=== PATIENT | female | born 1940 | race Caucasian/White ===

== ENCOUNTER 2017-12-30 16:09 | Inpatient (IN) | payer MEDICARE, MEDICAID ==
[~2017-12-30] VITALS: Ht 162.6 cm; Wt 55.0 kg
[2017-12-30] MEDS ORDERED: SODIUM CHLORIDE 0.9% 500 ML IVB ONE (16:25)
[2017-12-30] MEDS ORDERED: ONDANSETRON HCL 4 MG/2 ML VIAL IV ONE (16:30)
[2017-12-30] MEDS ORDERED: MORPHINE SULF INJ 2 MG/ML SYRINGE 1ML IV ONE (16:30)
[2017-12-30 17:07] LABS: Basophils # (auto) 0.1 uL; Eosinophils # (auto) 0.1 uL; Eosinophils % (auto) 1.4 % (0.0-7.0); Hematocrit 34.9 % (36.0-46.0); Hemoglobin 11.8 g/dL (12.2-16.2); Lymphocytes # (auto) 1.7 uL; Lymphocytes % (auto) 18.4 % (10.0-50.0); Mean Corpuscular Hemoglobin 30.5 pg (28.0-32.0); Mean Corpuscular Hgb Conc. 33.8 g/dL (32.0-36.0); Mean Corpuscular Volume 90.2 fL (80.0-100.0); Monocytes # (auto) 0.9 uL; Neutrophils # (auto) 6.5 uL; Neutrophils % (auto) 69.2 % (37.0-80.0); Platelet Count (auto) 228 10^3/uL (140-450); Red Blood Cells 3.87 10^6/uL (4.0-5.20); Red Cell Distribution Width 15.3 % (11.8-14.3); White Blood Cell 9.4 10^3/uL (4.4-10.8)
[2017-12-30 17:18] LABS: Albumin 2.6 g/dL (3.4-5.0); Calcium 7.8 mg/dL (8.5-10.1); Magnesium 1.9 mg/dL (1.6-2.6)
[2017-12-30 17:21] LABS: Bilirubin, Total 0.3 mg/dL (0.2-1.0); Total Protein 5.7 g/dL (6.4-8.2)
[2017-12-30 17:29] LABS: Potassium 2.9 mmol/L (3.5-5.1)
[2017-12-30] MEDS: SODIUM CHLORIDE 0.9% 1,000 ML IV SCH (19:12)
[2017-12-30] MEDS ORDERED: MORPHINE SULF INJ 2 MG/ML SYRINGE 1ML IV PRN (19:15)
[2017-12-30] MEDS ORDERED: cefTRIAXone 1GM/10ml IVPUSH 10 ML IV ONE (19:15)
[2017-12-30] MEDS ORDERED: PROMETHAZINE HCL 25 MG/ML 1ML IV PRN (19:15)
[2017-12-30] MEDS ORDERED: NITROGLYCERIN 0.4 MG SL TAB SL PRN (19:15)
[2017-12-30] MEDS ORDERED: ACETAMINOPHEN 500 MG TAB PO PRN (19:15)
[2017-12-30 20:28] LABS: INR 0.91 (0.9-1.15); Partial Thromboplastin Time 27.3 sec (23.78-33.04); Prothrombin Time 9.8 sec (9.27-12.13)
[2017-12-30] MEDS: MORPHINE SULFATE 4 MG/ML SYR/VIAL IV PRN (20:48)
[2017-12-30 20:55] VITALS: BP 106/70
[2017-12-30 22:00] VITALS: BP 106/70
[2017-12-31] VITALS (7 sets, daily range): BP systolic 91–111; BP diastolic 51–70
[2017-12-31] MEDS: metroNIDAZOLE 500MG/100ML 100 ML IV SCH ×5 (00:37→23:40)
[2017-12-31] MEDS: SODIUM CHLORIDE 0.9% 1,000 ML IV SCH ×3 (00:37→23:41)
[2017-12-31 01:36] LABS: Hemoglobin 11.7 g/dL (12.2-16.2)
[2017-12-31] MEDS ORDERED: HYDR-4683 PO (02:42)
[2017-12-31] MEDS ORDERED: DOCU-94 PO (02:42)
[2017-12-31 07:01] LABS: Basophils # (auto) 0.1 uL; Basophils % (auto) 1.2 % (0.0-2.0); Eosinophils # (auto) 0.2 uL; Eosinophils % (auto) 2.2 % (0.0-7.0); Hematocrit 33.3 % (36.0-46.0); Hemoglobin 11.3 g/dL (12.2-16.2); Lymphocytes # (auto) 1.8 uL; Lymphocytes % (auto) 21.8 % (10.0-50.0); Mean Corpuscular Hemoglobin 30.8 pg (28.0-32.0); Mean Corpuscular Volume 90.4 fL (80.0-100.0); Monocytes # (auto) 0.9 uL; Monocytes % (auto) 11.3 % (0.0-12.0); Neutrophils # (auto) 5.3 uL; Neutrophils % (auto) 63.5 % (37.0-80.0); Nucleated Red Blood Cells % 0.1 %; Platelet Count (auto) 219 10^3/uL (140-450); Red Blood Cells 3.68 10^6/uL (4.0-5.20); Red Cell Distribution Width 15.2 % (11.8-14.3); White Blood Cell 8.4 10^3/uL (4.4-10.8)
[2017-12-31 07:15] LABS: Albumin 2.5 g/dL (3.4-5.0); BUN/Creatinine Ratio 12.5; Calcium 7.8 mg/dL (8.5-10.1); Potassium 3.1 mmol/L (3.5-5.1)
[2017-12-31 07:18] LABS: Bilirubin, Total 0.3 mg/dL (0.2-1.0); Total Protein 5.3 g/dL (6.4-8.2)
[2017-12-31] MEDS ORDERED: GASTROGRAFIN 30 ML SOL ONE (09:01)
[2017-12-31] MEDS: PANTOPRAZOLE 40 MG TAB PO SCH (09:25)
[2017-12-31] MEDS: cefTRIAXone 1GM/10ml IVPUSH 10 ML IV SCH (09:25)
[2017-12-31 11:04] LABS: Urine Bacteria NONE SEEN /hpf (None Seen); Urine Blood Negative /uL (Negative); Urine Hyaline Cast FEW /lpf (0 - 2); Urine Specific Gravity 1.006 (1.001-1.035); Urine WBC 1 /hpf (0 - 5)
[2017-12-31] MEDS ORDERED: POTASSIUM CHL 20 Meq TABLET PO ONE (11:30)
[2017-12-31] MEDS: HYDROcodone-ACET 5/325MG TAB PO PRN ×2 (11:44→20:23)
[2017-12-31 12:11] LABS: Hematocrit 35.1 % (36.0-46.0); Hemoglobin 11.9 g/dL (12.2-16.2)
[2017-12-31] MEDS ORDERED: IOHEXOL 300 MG/ML 100ML BOTTLE IJ ONE (13:07)
[2018-01-01] VITALS (7 sets, daily range): BP systolic 90–124; BP diastolic 48–73
[2018-01-01] MEDS: HYDROcodone-ACET 5/325MG TAB PO PRN ×4 (02:14→23:26)
[2018-01-01] MEDS: metroNIDAZOLE 500MG/100ML 100 ML IV SCH ×4 (05:10→23:21)
[2018-01-01 06:21] LABS: Basophils # (auto) 0.1 uL; Basophils % (auto) 1.3 % (0.0-2.0); Eosinophils # (auto) 0.2 uL; Eosinophils % (auto) 2.1 % (0.0-7.0); Hemoglobin 10.5 g/dL (12.2-16.2); Lymphocytes # (auto) 2.3 uL; Lymphocytes % (auto) 27.9 % (10.0-50.0); Mean Corpuscular Hemoglobin 30.4 pg (28.0-32.0); Mean Corpuscular Hgb Conc. 33.8 g/dL (32.0-36.0); Mean Corpuscular Volume 89.8 fL (80.0-100.0); Monocytes # (auto) 0.8 uL; Monocytes % (auto) 9.7 % (0.0-12.0); Neutrophils # (auto) 4.8 uL; Platelet Count (auto) 197 10^3/uL (140-450); Red Blood Cells 3.45 10^6/uL (4.0-5.20); Red Cell Distribution Width 15.1 % (11.8-14.3); White Blood Cell 8.1 10^3/uL (4.4-10.8)
[2018-01-01 06:50] LABS: Albumin 2.3 g/dL (3.4-5.0); BUN/Creatinine Ratio 13.2; Bilirubin, Total 0.3 mg/dL (0.2-1.0); Calcium 7.7 mg/dL (8.5-10.1); Potassium 3.2 mmol/L (3.5-5.1)
[2018-01-01] MEDS: PANTOPRAZOLE 40 MG TAB PO SCH (09:13)
[2018-01-01] MEDS: cefTRIAXone 1GM/10ml IVPUSH 10 ML IV SCH (09:14)
[2018-01-01] MEDS: SODIUM CHLORIDE 0.9% 1,000 ML IV SCH ×2 (11:43→21:12)
[2018-01-02] MEDS: SODIUM CHLORIDE 0.9% 1,000 ML IV SCH ×2 (02:37→16:34)
[2018-01-02 04:59] VITALS: BP 93/53
[2018-01-02] MEDS: metroNIDAZOLE 500MG/100ML 100 ML IV SCH ×4 (05:30→23:33)
[2018-01-02] MEDS: HYDROcodone-ACET 5/325MG TAB PO PRN ×3 (05:33→21:26)
[2018-01-02 07:10] LABS: Basophils # (auto) 0.1 uL; Basophils % (auto) 1.4 % (0.0-2.0); Eosinophils # (auto) 0.2 uL; Eosinophils % (auto) 2.1 % (0.0-7.0); Hematocrit 32.5 % (36.0-46.0); Hemoglobin 10.9 g/dL (12.2-16.2); Lymphocytes # (auto) 1.7 uL; Lymphocytes % (auto) 23.2 % (10.0-50.0); Mean Corpuscular Hemoglobin 30.2 pg (28.0-32.0); Mean Corpuscular Hgb Conc. 33.6 g/dL (32.0-36.0); Mean Corpuscular Volume 90.1 fL (80.0-100.0); Monocytes # (auto) 0.7 uL; Monocytes % (auto) 8.9 % (0.0-12.0); Neutrophils # (auto) 4.7 uL; Neutrophils % (auto) 64.4 % (37.0-80.0); Platelet Count (auto) 218 10^3/uL (140-450); Red Blood Cells 3.61 10^6/uL (4.0-5.20); Red Cell Distribution Width 15.2 % (11.8-14.3); White Blood Cell 7.3 10^3/uL (4.4-10.8)
[2018-01-02 07:44] LABS: Albumin 2.4 g/dL (3.4-5.0); BUN/Creatinine Ratio 9.7; Bilirubin, Total 0.3 mg/dL (0.2-1.0); Calcium 7.6 mg/dL (8.5-10.1); Total Protein 5.2 g/dL (6.4-8.2)
[2018-01-02] MEDS: cefTRIAXone 1GM/10ml IVPUSH 10 ML IV SCH (08:36)
[2018-01-02] MEDS: PANTOPRAZOLE 40 MG TAB PO SCH (08:36)
[2018-01-02 09:00] VITALS: BP 93/57
[2018-01-02] MEDS ORDERED: POTASSIUM CHL 20 Meq TABLET PO ONE (11:00)
[2018-01-02 13:28] VITALS: BP 112/70
[2018-01-02 17:12] VITALS: BP 106/63
[2018-01-02] MEDS: MORPHINE SULFATE 4 MG/ML SYR/VIAL IV PRN (17:47)
[2018-01-02 21:53] VITALS: BP 112/66
[2018-01-03] MEDS: MORPHINE SULFATE 4 MG/ML SYR/VIAL IV PRN ×4 (01:37→19:57)
[2018-01-03] MEDS: SODIUM CHLORIDE 0.9% 1,000 ML IV SCH ×3 (03:10→22:52)
[2018-01-03 04:32] VITALS: BP 101/60
[2018-01-03] MEDS: metroNIDAZOLE 500MG/100ML 100 ML IV SCH ×2 (05:30→11:32)
[2018-01-03 06:41] LABS: Basophils # (auto) 0.1 uL; Basophils % (auto) 1.4 % (0.0-2.0); Eosinophils # (auto) 0.1 uL; Eosinophils % (auto) 1.7 % (0.0-7.0); Hematocrit 34.3 % (36.0-46.0); Hemoglobin 11.6 g/dL (12.2-16.2); Lymphocytes # (auto) 1.9 uL; Lymphocytes % (auto) 23.1 % (10.0-50.0); Mean Corpuscular Hemoglobin 30.5 pg (28.0-32.0); Mean Corpuscular Hgb Conc. 33.8 g/dL (32.0-36.0); Mean Corpuscular Volume 90.3 fL (80.0-100.0); Monocytes # (auto) 0.7 uL; Neutrophils # (auto) 5.2 uL; Neutrophils % (auto) 64.8 % (37.0-80.0); Platelet Count (auto) 229 10^3/uL (140-450); Red Cell Distribution Width 15.4 % (11.8-14.3); White Blood Cell 8.1 10^3/uL (4.4-10.8)
[2018-01-03 07:02] LABS: Albumin 2.5 g/dL (3.4-5.0); BUN/Creatinine Ratio 8.6; Potassium 3.4 mmol/L (3.5-5.1)
[2018-01-03 07:04] LABS: Bilirubin, Total 0.4 mg/dL (0.2-1.0); Total Protein 5.4 g/dL (6.4-8.2)
[2018-01-03] MEDS: PANTOPRAZOLE 40 MG TAB PO SCH (08:50)
[2018-01-03] MEDS: cefTRIAXone 1GM/10ml IVPUSH 10 ML IV SCH (08:51)
[2018-01-03] MEDS: HYDROcodone-ACET 5/325MG TAB PO PRN ×2 (08:51→13:45)
[2018-01-03 09:01] VITALS: BP 98/56
[2018-01-03 12:31] VITALS: BP 91/57
[2018-01-03 16:28] VITALS: BP 115/70
[2018-01-03 20:01] VITALS: BP 94/58
[2018-01-03 21:36] VITALS: BP 100/60
[2018-01-04] MEDS: HYDROcodone-ACET 5/325MG TAB PO PRN ×2 (00:05→07:50)
[2018-01-04] MEDS: SODIUM CHLORIDE 0.9% 1,000 ML IV SCH (03:20)
[2018-01-04 05:10] VITALS: BP 107/62
[2018-01-04 07:51] VITALS: BP 114/67
[2018-01-04] MEDS: PANTOPRAZOLE 40 MG TAB PO SCH (10:00)
== END 2018-01-04 16:40 | disposition home or self-care (01) | DRG 377 ==
LOC: ER 16:19 → TELE-WESTW 16:20
PROVIDERS: ADMIT Internal Medicine; ATTEND Family Medicine
DX: K62.5 Hemorrhage of anus and rectum (principal); E43 Unspecified severe protein-calorie malnutrition; K83.1 Obstruction of bile duct; C20 Malignant neoplasm of rectum; S36.69XA Other injury of rectum, initial encounter; E87.6 Hypokalemia; E83.51 Hypocalcemia; D50.0 Iron deficiency anemia secondary to blood loss (chronic); F17.210 Nicotine dependence, cigarettes, uncomplicated; I25.10 Atherosclerotic heart disease of native coronary artery without angina pectoris; M19.90 Unspecified osteoarthritis, unspecified site; Z90.49 Acquired absence of other specified parts of digestive tract; Z98.51 Tubal ligation status; X58.XXXA Exposure to other specified factors, initial encounter; Y93.89 Activity, other specified; Y92.89 Other specified places as the place of occurrence of the external cause; Z68.20 Body mass index [BMI] 20.0-20.9, adult
CPT/HCPCS: 36415; 71260; 74176; 74177; 80053; 81001; 82150; 82378; 83615; 83690; 83735; 85014; 85018; 85025; 85610; 85730; 86850; 86900; 86901; 94761; 96361; 96374; 96375; J0696; J2405; J3490

== ENCOUNTER 2018-01-20 15:59 | Inpatient (IN) | payer MEDICARE, MEDICAID ==
[~2018-01-20] VITALS: Ht 162.6 cm; Wt 56.2 kg
[~2018-01-20 15:59] MED LIST: DOCU-94 PO; HYDR-4683 PO
[2018-01-20] MEDS ORDERED: SODIUM CHLORIDE 0.9% 1,000 ML IVB ONE (16:29)
[2018-01-20] MEDS ORDERED: ACETAMINOPHEN 325 MG TAB PO ONE (16:45)
[2018-01-20 16:50] LABS: Basophils # (auto) 0.1 uL; Basophils % (auto) 0.4 % (0.0-2.0); Eosinophils # (auto) 0 uL; Eosinophils % (auto) 0.1 % (0.0-7.0); Hemoglobin 12.6 g/dL (12.2-16.2); Lymphocytes # (auto) 0.7 uL; Lymphocytes % (auto) 4.5 % (10.0-50.0); Mean Corpuscular Hemoglobin 30.3 pg (28.0-32.0); Mean Corpuscular Hgb Conc. 33.1 g/dL (32.0-36.0); Mean Corpuscular Volume 91.4 fL (80.0-100.0); Monocytes # (auto) 0.8 uL; Monocytes % (auto) 4.8 % (0.0-12.0); Neutrophils # (auto) 14.8 uL; Neutrophils % (auto) 90.2 % (37.0-80.0); Platelet Count (auto) 268 10^3/uL (140-450); Red Blood Cells 4.16 10^6/uL (4.0-5.20); Red Cell Distribution Width 16.4 % (11.8-14.3); White Blood Cell 16.4 10^3/uL (4.4-10.8)
[2018-01-20 17:05] LABS: Albumin 2.7 g/dL (3.4-5.0); Anion Gap 14 (5-15); Blood Urea Nitrogen 11 mg/dL (7-18); Calcium 8.4 mg/dL (8.5-10.1); Carbon Dioxide 24 mmol/L (21-32); Chloride 101 mmol/L (98-107); Glucose 130 mg/dL (74-106); Sodium 139 mmol/L (136-145)
[2018-01-20 17:06] LABS: Alanine Aminotransferase 12 U/L (13-56); Aspartate Aminotransferase 12 U/L (15-37); GFR African American 103 mL/min; GFR Non-African American 85 mL/min
[2018-01-20 17:07] LABS: Potassium 2.8 mmol/L (3.5-5.1)
[2018-01-20 17:11] LABS: Alkaline Phosphatase 58 U/L (45-117); Bilirubin, Total 0.8 mg/dL (0.2-1.0); Total Protein 6.3 g/dL (6.4-8.2)
[2018-01-20] MEDS ORDERED: POTASSIUM CHL 20MEQ/100ML 100 ML IV ONE (17:15)
[2018-01-20 17:18] LABS: BUN/Creatinine Ratio 15.5
[2018-01-20] MEDS ORDERED: ACETAMINOPHEN 325 MG TAB PO PRN ×2 (17:30→18:00)
[2018-01-20] MEDS ORDERED: NITROGLYCERIN 0.4 MG SL TAB SL PRN (17:30)
[2018-01-20] MEDS ORDERED: TEMAZEPAM 15 MG CAP PO PRN (17:30)
[2018-01-20] MEDS ORDERED: MORPHINE SULF INJ 2 MG/ML SYRINGE 1ML IV PRN ×2 (17:30)
[2018-01-20] MEDS ORDERED: SODIUM CHLORIDE 0.9% 2,000 ML IV ONE (17:30)
[2018-01-20] MEDS ORDERED: POTASSIUM EFFERVESENT TAB 25 MEQ PO ONE (17:30)
[2018-01-20] MEDS ORDERED: ONDANSETRON HCL 4 MG/2 ML VIAL IV PRN (17:30)
[2018-01-20] MEDS ORDERED: DEXTROSE (50%) 50ML SYRG IV PRN (17:30)
[2018-01-20] MEDS ORDERED: HYDROcodone-ACET 5/325MG TAB PO PRN (17:30)
[2018-01-20] MEDS: SODIUM CHLORIDE 0.9% 1,000 ML IV SCH (17:48)
[2018-01-20] MEDS ORDERED: VANCOMYCIN PER PHARMACY 0 MG IV SCH (18:00)
[2018-01-20] MEDS ORDERED: cefTRIAXone 1GM/10ml IVPUSH 10 ML IV ONE (18:00)
[2018-01-20] MEDS ORDERED: VANCOMYCIN 1GM/250ML 250 ML IV ONE (18:15)
[2018-01-20] MEDS: Glucerna Carbsteady SHAKE Vanilla 8oz PO SCH ×2 (18:22→21:17)
[2018-01-20] MEDS: FAMOTIDINE 20 MG TAB PO SCH (21:06)
[2018-01-20] MEDS: InsuLIN REG 1unit/0.01ml Soln (100units/ml) SC SCH (21:07)
[2018-01-20] MEDS: ACCU-CHEK COMFORT CURVE STRIP VI SCH (21:24)
[2018-01-20 22:00] VITALS: BP 92/59
[2018-01-20 22:49] LABS: Hemoglobin 10.7 g/dL (12.2-16.2)
[2018-01-20 22:52] LABS: Hematocrit 34.5 % (36.0-46.0)
[2018-01-20 23:07] LABS: BUN/Creatinine Ratio 20.5; Calcium 7.2 mg/dL (8.5-10.1)
[2018-01-20 23:09] LABS: Potassium 2.9 mmol/L (3.5-5.1); Prothrombin Time 10.7 sec (9.27-12.13)
[2018-01-21] MEDS ORDERED: POTASSIUM CHL 20 Meq TABLET PO ONE ×2 (00:15→14:30)
[2018-01-21] MEDS: SODIUM CHLORIDE 0.9% 1,000 ML IV SCH ×2 (01:50→10:13)
[2018-01-21 05:00] VITALS: BP 85/49
[2018-01-21 05:57] LABS: Basophils # (auto) 0.1 uL; Basophils % (auto) 0.7 % (0.0-2.0); Eosinophils # (auto) 0.1 uL; Eosinophils % (auto) 0.9 % (0.0-7.0); Hematocrit 32.2 % (36.0-46.0); Hemoglobin 10.8 g/dL (12.2-16.2); Lymphocytes # (auto) 1.2 uL; Lymphocytes % (auto) 10.9 % (10.0-50.0); Mean Corpuscular Hemoglobin 30.9 pg (28.0-32.0); Mean Corpuscular Hgb Conc. 33.6 g/dL (32.0-36.0); Monocytes # (auto) 0.7 uL; Monocytes % (auto) 6.6 % (0.0-12.0); Neutrophils # (auto) 9.1 uL; Neutrophils % (auto) 80.9 % (37.0-80.0); Platelet Count (auto) 223 10^3/uL (140-450); Red Cell Distribution Width 16.6 % (11.8-14.3); White Blood Cell 11.3 10^3/uL (4.4-10.8)
[2018-01-21] MEDS: Glucerna Carbsteady SHAKE Vanilla 8oz PO SCH ×2 (06:00→12:00)
[2018-01-21 06:23] LABS: Albumin 2.2 g/dL (3.4-5.0); BUN/Creatinine Ratio 16.7; Bilirubin, Total 0.3 mg/dL (0.2-1.0); Calcium 7.8 mg/dL (8.5-10.1); Potassium 3.1 mmol/L (3.5-5.1); Total Protein 5.1 g/dL (6.4-8.2)
[2018-01-21] MEDS: InsuLIN REG 1unit/0.01ml Soln (100units/ml) SC SCH ×2 (06:34→11:30)
[2018-01-21] MEDS: ACCU-CHEK COMFORT CURVE STRIP VI SCH ×2 (06:34→11:30)
[2018-01-21] MEDS ORDERED: cefTRIAXone 1GM/10ml IVPUSH 10 ML IV SCH (09:00)
[2018-01-21 09:16] VITALS: BP 84/44
[2018-01-21] MEDS ORDERED: SODIUM CHLORIDE 0.9% 500 ML IV ONE (09:30)
[2018-01-21] MEDS ORDERED: MULTIPLE VITAMIN TAB PO SCH (10:00)
[2018-01-21] MEDS: FAMOTIDINE 20 MG TAB PO SCH (10:13)
[2018-01-21 11:19] VITALS: BP 99/52
[2018-01-21 12:29] VITALS: BP 107/59
[2018-01-21] MEDS ORDERED: metroNIDAZOLE 500 MG TAB PO ONE (14:30)
[2018-01-21] MEDS ORDERED: metroNIDAZOLE 500 MG TAB PO SCH (18:00)
[2018-01-21] MEDS ORDERED: VANCOMYCIN 750 MG in D5W 5% 250 ML IV SCH (18:00)
== END 2018-01-21 15:16 | disposition left against medical advice (07) | DRG 872 ==
LOC: ER 15:59 → EDBD 15:59 → EDSEX 15:59 → TELE 16:00 → TELE-WESTW 20:13
PROVIDERS: ADMIT Internal Medicine; ATTEND Internal Medicine
DX: A41.9 Sepsis, unspecified organism (principal); E44.0 Moderate protein-calorie malnutrition; J98.11 Atelectasis; E87.6 Hypokalemia; E86.0 Dehydration; F17.210 Nicotine dependence, cigarettes, uncomplicated; K52.9 Noninfective gastroenteritis and colitis, unspecified; Z53.21 Procedure and treatment not carried out due to patient leaving prior to being seen by health care provider; N18.2 Chronic kidney disease, stage 2 (mild); K43.9 Ventral hernia without obstruction or gangrene; I70.0 Atherosclerosis of aorta; D71 Functional disorders of polymorphonuclear neutrophils; Z90.49 Acquired absence of other specified parts of digestive tract; Z68.21 Body mass index [BMI] 21.0-21.9, adult; Z82.49 Family history of ischemic heart disease and other diseases of the circulatory system; Z85.048 Personal history of other malignant neoplasm of rectum, rectosigmoid junction, and anus
CPT/HCPCS: 36415; 74176; 80048; 80053; 83036; 83605; 83690; 84484; 85014; 85018; 85025; 85610; 87040; 87081; 93005; 94761; 96361; 96374; 96375; J0696; J3480; J7060